=== PATIENT | female | born 1990 | race Caucasian/White ===

== ENCOUNTER 2020-05-27 02:27 | Inpatient (IN) ==
[2020-05-27] MEDS ORDERED: Naloxone 0.4 MG/ML INJ IVP PRN ×2 (02:37→15:51)
[2020-05-27] MEDS ORDERED: Famotidine 20 MG/2 ML VIAL IVP PRN (02:37)
[2020-05-27] MEDS ORDERED: Metoclopramide 10 MG/2 ML VIAL IVP PRN (02:37)
[2020-05-27] MEDS ORDERED: *HR* FentaNYL (PF) 100 MCG/2 ML VIAL IVP PRN (02:37)
[2020-05-27] MEDS ORDERED: Ondansetron 4 MG/2 ML VIAL IVP PRN ×2 (02:37→15:51)
[2020-05-27] MEDS ORDERED: Azithromycin 500 MG in 0.9 % Sodium Chloride 250 ML IVPB ONE (02:37)
[2020-05-27 03:03] LABS: Basophils # 0.1 K/mcL (0.0-0.2); Basophils % 0.3 %; Eosinophils # 0.1 K/mcL (0.0-0.6); Eosinophils % 0.5 %; Hematocrit 35.6 % (35.3-44.9); Hemoglobin 11.9 g/dL (11.5-15.4); Immature Granulocytes % 0.7 % (0-4); Lymphocytes # 2.2 K/mcL (0.6-4.6); Lymphocytes % 13.8 %; Mean Corpuscular HGB Conc 33.4 g/dL (31.6-35.5); Mean Corpuscular Hemoglobin 29.2 pg (28.0-33.3); Mean Corpuscular Volume 87.5 fL (83.0-100.0); Mean Platelet Volume 11.8 fL (9.4-12.4); Monocytes # 1.1 K/mcL (0.0-1.3); Monocytes % 7.1 %; Neutrophils # 12.3 K/mcL (1.6-8.9); Platelet Count 130 K/mcL (140-400); Red Blood Count 4.07 M/mcL (3.82-4.97); Red Cell Distribution Width 13.3 % (11.5-14.5); Segmented Neutrophils % 77.6 %; White Blood Count 15.9 K/mcL (4.3-11.1)
[2020-05-27 03:10] LABS: Amphetamine Screen,Urine Negative ng/mL (Cutoff=1000); Barbiturate Screen,Urine Negative ng/mL (Cutoff=200); Benzodiazepines Screen,Urine Negative ng/mL (Cutoff=200); Cannabinoid Screen,Urine Negative ng/mL (Cutoff = 50); Cocaine Screen,Urine Negative ng/mL (Cutoff= 300); Opiate Screen,Urine Negative ng/mL (Cutoff=300); Phencyclidine Screen,Urine Negative ng/mL (Cutoff=25)
[2020-05-27] MEDS ORDERED: Oxytocin 20 units/ LR 1000 mL 20 UNIT/1,000 ML BAG IVC SCH (10:30)
[2020-05-27] MEDS: Ringers Solution, Lactated 1,000 ML IVC SCH ×2 (10:45→19:09)
[2020-05-27] MEDS ORDERED: Morphine Sulfate 2 MG/ML SYRINGE IVP ONE (13:22)
[2020-05-27] MEDS ORDERED: EPHEDrine 50 MG/ML VIAL IVP PRN (15:51)
[2020-05-27] MEDS ORDERED: Ropivacaine/PF 0.2% 20 ML VIAL EP ONE (15:51)
[2020-05-27] MEDS ORDERED: Epidural Premix (fent/bupiv) 110 ML EP ONE (15:57)
[2020-05-27] MEDS ORDERED: Epidural Premix (fent/bupiv) 110 ML EP SCH (16:00)
[2020-05-27] MEDS ORDERED: Ampicillin 2 GM in 0.9 % Sodium Chloride Mini Bag 100 ML IVPB SCH (22:07)
[2020-05-27] MEDS ORDERED: Gentamicin 340 MG in 0.9 % Sodium Chloride 100 ML IVPB SCH (22:10)
[2020-05-28] MEDS ORDERED: *HR* HYDROcodone/Acet 5/325 mg TABLET PO PRN (05:43)
[2020-05-28] MEDS ORDERED: Oxytocin 20 units/ LR 1000 mL 20 UNIT/1,000 ML BAG IVC SCH (05:43)
[2020-05-28] MEDS ORDERED: Sennosides 8.6 MG TABLET PO PRN (05:43)
[2020-05-28] MEDS: Prenatal Vit/FA 1 EACH TABLET PO SCH (09:24)
[2020-05-28] MEDS: Ibuprofen 600 MG TABLET PO PRN ×2 (09:24→15:09)
[2020-05-28] MEDS: Acetaminophen 325 MG TABLET PO PRN (09:25)
[2020-05-28] MEDS: Benzocaine/Menthol 56 GM AEROSOL SPRAY TP PRN (11:57)
[2020-05-28] MEDS ORDERED: Magnesium Sulfate 1 EACH PACKAGE TP ONE (17:07)
[2020-05-28] MEDS ORDERED: Ondansetron ODT 4 MG TAB.RAPDIS SL PRN (17:09)
[2020-05-28] MEDS: *HR* OxyCODONE/APAP 5/325 TABLET PO PRN (17:38)
[2020-05-28] MEDS: Lanolin 7 G OINT...G. TP PRN (23:11)
[2020-05-29] MEDS: Ibuprofen 600 MG TABLET PO PRN ×2 (05:39→14:20)
[2020-05-29] MEDS: Benzocaine/Menthol 56 GM AEROSOL SPRAY TP PRN (08:05)
[2020-05-29] MEDS: Prenatal Vit/FA 1 EACH TABLET PO SCH (08:05)
[2020-05-29] MEDS: Lanolin 7 G OINT...G. TP PRN (09:08)
[2020-05-29] MEDS: Acetaminophen 325 MG TABLET PO PRN (09:08)
[2020-05-29 11:21] LABS: Basophils # 0.1 K/mcL (0.0-0.2); Basophils % 0.3 %; Eosinophils # 0.1 K/mcL (0.0-0.6); Eosinophils % 0.6 %; Immature Granulocytes % 1.1 % (0-4); Lymphocytes # 2.3 K/mcL (0.6-4.6); Lymphocytes % 10.2 %; Mean Corpuscular HGB Conc 33.5 g/dL (31.6-35.5); Mean Corpuscular Hemoglobin 30.4 pg (28.0-33.3); Mean Corpuscular Volume 90.9 fL (83.0-100.0); Monocytes # 1.4 K/mcL (0.0-1.3); Monocytes % 5.9 %; Neutrophils # 18.8 K/mcL (1.6-8.9); Platelet Count 131 K/mcL (140-400); Red Blood Count 2.86 M/mcL (3.82-4.97); Red Cell Distribution Width 13.7 % (11.5-14.5); Segmented Neutrophils % 81.9 %; White Blood Count 22.9 K/mcL (4.3-11.1)
[2020-05-29 11:24] LABS: Hemoglobin 8.7 g/dL (11.5-15.4)
[2020-05-29 11:41] VITALS: BP 110/78
[2020-05-29] MEDS: *HR* OxyCODONE/APAP 5/325 TABLET PO PRN (11:56)
== END 2020-05-29 18:30 | disposition home or self-care (01) | DRG 560 ==
LOC: 1NENULAB 02:27 → 1NENUOBS 05-28 05:45
PROVIDERS: ADMIT Obstetrics & Gynecology; ATTEND Obstetrics & Gynecology